=== PATIENT | female | born 1970 | race Caucasian/White ===

== ENCOUNTER 2016-11-12 05:52 | Inpatient (IN) | payer OTHER ==
[~2016-11-12] VITALS: Ht 165.1 cm; Wt 74.8 kg
[~2016-11-12 05:52] MED LIST: ASCO500T45 PO; FERR-193 PO
[2016-11-12 06:53] LABS: BASOPHILS # (AUTO) 0.1 K/uL (0.00-0.22); BASOPHILS % (AUTO) 1.1 % (0.0-2.0); EOSINOPHILS # (AUTO) 0.1 K/uL (0-0.4); EOSINOPHILS % (AUTO) 2.1 % (0.0-4.0); HEMATOCRIT 34.6 % (36-48); HEMOGLOBIN 10.9 g/dL (12.0-16.0); LYMPHOCYTES % (AUTO) 29.5 % (20.5-51.1); MEAN CORPUSCULAR HEMOGLOBIN 24 pg (27-31); MEAN CORPUSCULAR HGB CONC 31 g/dL (33-37); MEAN CORPUSCULAR VOLUME 78 fL (80-94); MONOCYTES # (AUTO) 0.6 K/uL (0.8-1.0); MONOCYTES % (AUTO) 8.7 % (1.7-9.3); NEUTROPHILS # (AUTO) 4.1 K/uL (1.8-7.7); NEUTROPHILS % (AUTO) 58.6 % (42.2-75.2); PLATELET COUNT (AUTO) 188 K/uL (140-450); RED BLOOD CELL COUNT(AUTO) 4.46 MIL/uL (4.20-5.40); RED CELL DISTRIBUTION WIDTH 16.8 % (11.6-13.7); WHITE BLOOD COUNT (AUTO) 6.9 K/uL (4.8-10.8)
[2016-11-12 07:52] LABS: ANION GAP 13.2 (8-16); CALCIUM 8.5 mg/dL (8.5-10.1); CARBON DIOXIDE 25.7 mmol/L (21-32); CREATININE 0.7 mg/dL (0.6-1.3); POTASSIUM 3.9 mmol/L (3.5-5.1)
[2016-11-12 07:59] LABS: ALBUMIN 3.8 g/dL (3.4-5.0); TOTAL BILIRUBIN 0.3 mg/dL (0.0-1.0); TOTAL PROTEIN, SERUM 7.6 g/dL (6.4-8.2)
[2016-11-12] MEDS ORDERED: BUPIVACAINE-MPF/EPI 0.5% 30 ML VIAL INJ ONE (08:22)
--- NOTE | 2016-11-12 08:30 | NUR ---
INITIAL REVIEW FA[facility]ED TO [facility] [phone] PHONE [phone]
[2016-11-12] MEDS ORDERED: fentaNYL 0.05 MG/ML VIAL ONE (11:54)
[2016-11-12] MEDS ORDERED: DESFLURANE 240 ML BTL INH ONE (12:09)
[2016-11-12] MEDS ORDERED: DEXAMETHASONE 4 MG/ML VIAL ONE (12:09)
[2016-11-12] MEDS ORDERED: ROCURONIUM 50 MG/5 ML VIAL IV ONE (12:09)
[2016-11-12] MEDS ORDERED: KETOROLAC 30 MG/ML VIAL ONE (12:09)
[2016-11-12] MEDS ORDERED: PHENYLEPHRINE 10 MG/ML VIAL ONE (12:09)
[2016-11-12] MEDS ORDERED: GLYCOPYRROLATE 0.2 MG/ML VIAL ONE (12:09)
[2016-11-12] MEDS ORDERED: PROPOFOL 200 MG/20 ML VIAL IV ONE (12:09)
[2016-11-12] MEDS ORDERED: ONDANSETRON 4 MG/2 ML VIAL IVP PRN ×2 (12:20→12:35)
[2016-11-12] MEDS ORDERED: HYDROmorphone PFS 2 MG/ML SYR ONE ×2 (12:33→13:47)
[2016-11-12] MEDS ORDERED: THROMBIN KIT 20 MU VIAL TP ONE ×2 (13:02→13:15)
[2016-11-12] MEDS: HYDROmorphone 1 MG/ML AMP IVP PRN ×4 (13:40→14:10)
[2016-11-12 14:25] VITALS: BP 121/66
--- NOTE | 2016-11-12 14:25 | NUR ---
PATIENT ARRIVED TO THE UNIT IN A GURNEY. PT S/P HYSTERECTOMY AND REMOVAL OF THE RIGHT OVARIAN CYST. NO S/S OF DISTRESS NOTED. PATIENT BREATHING ON ROOM AIR. INCISION NOTED TO THE LOWER ABDOMEN COVERED WITH CLEAN DRY AND INTACT DRESSING. SHELTON CATHETER IN PLACE. IV LINE NOTED TO THE LEFT HAND INTACT AND ASYMPTOMATIC. BED LOWERED WITH CALL LIGHT WITHIN REACH. WILL CONTINUE TO MONITOR
[2016-11-12 15:08] VITALS: BP 134/81
[2016-11-12] MEDS: MORPHINE SULFATE 4 MG/ML SYR IM/IVP PRN ×2 (15:10→21:56)
[2016-11-12 16:00] VITALS: BP 126/71
--- NOTE | 2016-11-12 16:30 | NUR ---
PATIENT ASLEEP IN BED NO S/S OF DISTRESS NOTED
--- NOTE | 2016-11-12 19:25 | NUR ---
ENDORSED CONTINUITY OF CARE TO THE NIGHT NURSE. PATIENT IN STABLE IN CONDITION
--- NOTE | 2016-11-12 19:26 | NUR ---
PATIENT IS CURRENTLY AWAKE ALERT ORIENTED RESTING IN BED,DRESSING TO LOWER ABDOMEN CURRENTLY DRY AND INTACT.PATIENT HAS A SHELTON CATHETER IN PLACE TO GRAVITY, AND PATIENT IS CURRENTLY WEARING THE SCD'S FOR DVT PROPHALAXIS. FAMILY IS CURRENTLY AT BEDSIDE WITH THE PATIENT.CALL LIGHT WITHIN REACH WILL CONTINUE TO OBSERVE.
[2016-11-12 20:00] VITALS: BP 139/89
--- NOTE | 2016-11-12 20:00 | NUR ---
Patient's Plan of Care was discussed and reviewed with MEDICAL BILLING AND CODING INSTRUCTOR: CAMILLA ROBERTS.
[2016-11-12] MEDS: ACETAMINOPHEN/CODEINE 300/30MG 1 TAB PO PRN (20:34)
--- NOTE | 2016-11-12 20:34 | NUR ---
PATIENT COMPLAINS OF MODERATE PAIN 6/10 TO LOWER ABDOMEN PATIENT MEDICATED ORDERED FOR MODERATE PAIN.PATIENT HAS NO COMPLAINS OF N/V AT THIS TIME.WILL CONTINUE TO MONITOR.
--- NOTE | 2016-11-12 21:56 | NUR ---
PATIENT COMPLAINS OF SEVERE PAIN THAT CAME SUDDENLY WHEN SHE WOKE UP 02/21 HERBERT SMITH AWARE SHE WILL MEDICATE THE PATIENT WITH MORPHINE IV ORDERED.
--- NOTE | 2016-11-12 21:57 | NUR ---
PATIENT INFORMED ME THAT SHE VOMITED A FEW MINUTES AGO APPROX 30 MINUTES AGO, EDUCATION GIVEN TO THE PATIENT TO CALL FOR ASSISTANCE AND TO CALL WHENEVER SHE HAS ANY PAIN OR FEELS NAUSEATED OR IS VOMITING WHEN IT HAPPENS. PATIENT ENCOURAGED TO VERBALIZE IF SHE HAS ANY PAIN OR DISCOMFORT, PT VERBALIZES UNDERSTANDING.HERBERT SMITH WILL MEDICATE THE PATIENT WITH ZOFRAN.
--- NOTE | 2016-11-12 22:27 | NUR ---
I MADE ROUNDS AND I CHECKED ON THE PATIENT AND SHE IS CURRENTLY ASLEEP.WILL CONTINUE TO MONITOR.
[2016-11-13] VITALS: BP 135/77
--- NOTE | 2016-11-13 00:05 | NUR ---
PATIENT WAS ASSISTED TO TURN AND REPOSITION AND WAS ASSISTED BY ERIC DAUGHERTY AND ERIC COLES.PT KEPT COMFORTABLE WILL CONTINUE TO MONITOR.
--- NOTE | 2016-11-13 03:22 | NUR ---
PATIENT STABLE SLEEPING IN BED WILL CONTINUE TO MONITOR.CALL LIGHT WITHIN REACH.
[2016-11-13] MEDS: MORPHINE SULFATE 4 MG/ML SYR IM/IVP PRN ×2 (03:35→11:14)
--- NOTE | 2016-11-13 05:23 | NUR ---
PT SLEEPING COMFORTABLY IN BED NEEDS CONTINUE TO BE MET.WILL CONTINUE TO MONITOR.
[2016-11-13 06:51] LABS: BASOPHILS % (AUTO) 0.3 % (0.0-2.0); EOSINOPHILS # (AUTO) 0.2 K/uL (0-0.4); EOSINOPHILS % (AUTO) 1.3 % (0.0-4.0); HEMATOCRIT 31.4 % (36-48); HEMOGLOBIN 10.2 g/dL (12.0-16.0); LYMPHOCYTES # (AUTO) 1.8 K/uL (2.5-16.5); LYMPHOCYTES % (AUTO) 12.9 % (20.5-51.1); MEAN CORPUSCULAR HEMOGLOBIN 24 pg (27-31); MEAN CORPUSCULAR HGB CONC 32 g/dL (33-37); MEAN CORPUSCULAR VOLUME 75 fL (80-94); MONOCYTES # (AUTO) 1.4 K/uL (0.8-1.0); NEUTROPHILS # (AUTO) 10.5 K/uL (1.8-7.7); NEUTROPHILS % (AUTO) 75.5 % (42.2-75.2); PLATELET COUNT (AUTO) 244 K/uL (140-450); RED BLOOD CELL COUNT(AUTO) 4.19 MIL/uL (4.20-5.40); RED CELL DISTRIBUTION WIDTH 16.7 % (11.6-13.7); WHITE BLOOD COUNT (AUTO) 13.9 K/uL (4.8-10.8)
--- NOTE | 2016-11-13 07:20 | NUR ---
RECEIVED PT REPORT AT BEDSIDE. PT IS A/OX4. SHE IS RESTING IN BED WITH NO SIGNS AND SYMPTOMS OF DISTRESS. PT ON RM AIR. PT COMPLAINS OF PAIN BUT IS MEDICATED WILL CONTINUE TO MONITOR FOR PAIN. IV NOTED ON THE L HAND SALINE LOCKED. INCISION NOTED ON LOWER ABD WITH CLEAN AND DRY INTACT DRESSING. SHELTON CATHETER IN PLACE WITH CLEAR YELLOW URINE. PT ON TELE MONITORING. BED LOWERED WITH CALL LIGHT WITHIN REACH. WILL CONTINUE TO MONITOR.
--- NOTE | 2016-11-13 07:32 | NUR ---
PATIENT STABLE REPORT ENDORSED TO HERBERT ROBLES.
[2016-11-13 08:00] VITALS: BP 134/72
--- NOTE | 2016-11-13 08:45 | NUR ---
PT IN BED EATING A CLEAR LIQUID DIET AND PT IS TOLERATING WELL.
--- NOTE | 2016-11-13 08:55 | NUR ---
PATIENT HAS BEEN SCREENED AND CATEGORIZED LOW NUTRITION RISK. PATIENT WILL BE SEEN WITHIN 7 DAYS OF ADMISSION. 11/18/[address]
--- NOTE | 2016-11-13 09:52 | NUR ---
SHELTON CATHETER WAS DISCONTINUED WITH 850ML URINE OUTPUT. PT TOLERATED WELL.
[2016-11-13] MEDS: ACETAMINOPHEN/CODEINE 300/30MG 1 TAB PO PRN ×3 (10:00→20:10)
--- NOTE | 2016-11-13 10:41 | NUR ---
AMBULATED PT TO RESTROOM WITH FAMILY MEMBER. PT VOIDED.
--- NOTE | 2016-11-13 10:50 | NUR ---
PT SEEN BY DR NICHOLS. DR NICHOLS MADE AWARE OF PTS WBC OF 13.9. ORDERS TO HAVE THE INCISION OPEN TO AIR.
[2016-11-13 11:10] VITALS: BP 129/69
--- NOTE | 2016-11-13 12:05 | NUR ---
REMOVED ABDOMINAL DRESSING. INCISION IS INTACT NO DRAINAGE NOTED. PATIENT TOLERATED WELL.
--- NOTE | 2016-11-13 12:30 | NUR ---
PT IS AMBULATED IN THE UNIT WITH . THERE ARE NO S/S OF DISTRESS.
--- NOTE | 2016-11-13 15:30 | NUR ---
PT AMBULATED WITH ASSISTANCE TO THE BATHROOM AND VOIDED. PATIENT IS RESTING WITH NO S/S OF DISTRESS.
[2016-11-13 16:03] VITALS: BP 126/70
--- NOTE | 2016-11-13 19:05 | NUR ---
GAVE REPORT AT BEDSIDE TO CAMILLA GODINEZ. PT IS WITH FAMILY. PT SHOWS NO S/S OF DISTRESS. PATIENT ENDORSED IN STABLE CONDITION.
--- NOTE | 2016-11-13 19:06 | NUR ---
PATIENT IS CURRENTLY AWAKE ALERT RESTING IN BED DENIES ANY PAIN OR DISCOMFORT NO COMPLAINS OF N/V NOTED AT THIS TIME.LOWER ABDOMEN INCISION WITH RELL THEY ARE CURRENTLY DRY AND INTACT.PT STATES,"I HAVE BEEN WALKING TODAY AND IM CURRENTLY TIRED."PT ENCOURAGED TO CONTINUE TO AMBULATE AND CONTINUE TO CALL FOR ASSISTANCE WHEN SHE NEEDS ASSISTANCE PT VERBALIZES UNDERSTANDING.FAMILY AT BEDSIDE CALL LIGHT WITHIN REACH WILL CONTINUE TO MONITOR.
[2016-11-13 20:00] VITALS: BP 123/74
--- NOTE | 2016-11-13 21:40 | NUR ---
PATIENT WAS ASSISTED TO THE BATHROOM WITH THE ASSISTANCE OF ERIC DAUGHERTY AND BROUGHT BACK TO BED.PATIENT TOLERATED ACTIVITY WELL. PATIENT WAS GIVEN A MESH UNDERWEAR FOR HER TO WEAR PROVIDED WITH SOME PERIPADS AND RELL TO LOWER ABDOMEN COVERED WITH A CLEAN PERIPAD SO THEY DON'T GET STUCK TO MESH UNDERWEAR. PATIENT STATES," KNOW THAT IM IN BED I WOULD LIKE TO GET SOME SLEEP." LIGHTS TURNED OFF FOR THE PATIENT AND I MADE SURE CALL LIGHT IS ALWAYS WITHIN HER REACH.
--- NOTE | 2016-11-13 23:19 | NUR ---
Patient's Plan of Care was discussed and reviewed with STRUCTURAL STEEL FITTER: CAMILLA ROBERTS
[2016-11-14 00:55] VITALS: BP 131/74
--- NOTE | 2016-11-14 00:55 | NUR ---
PATIENT IS CURRENTLY AWAKE PULLED UP IN BED CAREFULLY WITH THE HELP OF HERBERT SMITH. PATIENT WAS GIVEN FRESH WATER AND SOME JELLO AND ENCOURAGED HER TO TAKE SMALL SIPS.I ALSO ASKED THE PATIENT IF SHE IS IN PAIN SHE SAID SHE HAS MODERATE PAIN 5/10 TO LOWER ABDOMEN I OFFERED PAIN MEDICATION PT DECLINED AT FIRST. BUT I EDUCATED THE PATIENT ON THE IMPORTANCE TO RECEIVE PAIN MEDICATION TO HELP CONTROL AND RELIEVE HER PAIN. SHE VERBALIZED UNDERSTANDING AND CHANGED HER MIND ABOUT RECEIVING HER PAIN MEDS.WILL MEDICATE ORDERED.
--- NOTE | 2016-11-14 01:00 | NUR ---
ASSISTED UP TO THE BATHROOM. VOIDED. NO BLEEDING NOTED ON THE REBA PAD
[2016-11-14] MEDS: ACETAMINOPHEN/CODEINE 300/30MG 1 TAB PO PRN ×4 (01:04→20:08)
--- NOTE | 2016-11-14 03:10 | NUR ---
PATIENT SLEEPING IN BED IN NO DISTRESS WILL CONTINUE TO MONITOR.CALL LIGHT WITHIN REACH.
--- NOTE | 2016-11-14 04:02 | NUR ---
PATIENT SLEEPING COMFORTABLY IN BED WILL CONTINUE TO MONITOR.CALL LIGHT WITHIN REACH.
--- NOTE | 2016-11-14 06:05 | NUR ---
I CALLED RESPIRATORY THERAPIST GRICELDA TO REMIND HIM THAT PATIENT NEEDS INCENTIVE SPIROMETER HE SAID HE WILL COME TO GIVE THE PATIENT INCENTIVE SPIROMETER SOON HE CAN.
--- NOTE | 2016-11-14 06:44 | NUR ---
PATIENT REQUESTED FOR A BLANKET AND THEN STATES," THANK YOU FOR THE PAIN MEDICATION IT WAS VERY EFFECTIVE FOR MY PAIN."CALL LIGHT WITHIN REACH.
--- NOTE | 2016-11-14 07:10 | NUR ---
RECEIVED PT REPORT AT BEDSIDE. PT IS A/OX4. SHE IS RESTING IN BED WITH NO SIGNS AND SYMPTOMS OF DISTRESS. PT ON RM AIR. IV NOTED ON THE L HAND SALINE LOCKED.BED LOWERED WITH CALL LIGHT WITHIN REACH. WILL CONTINUE TO MONITOR
[2016-11-14 07:40] VITALS: BP 118/68
--- NOTE | 2016-11-14 07:45 | NUR ---
AMBULATED WITH PT IN THE UNIT. PT TOLERATED WELL AND VOIDED. PT IS RESTING IN BED NOW. PT SHOWS NO S/S OF DISTRESS.
--- NOTE | 2016-11-14 08:00 | NUR ---
DR NICHOLS MET WITH PT AND TALKED ABOUT BEST TIME FOR PT TO BE DISCHARGED. PT VERBALIZED TUESDAY THE BEST FOR HER TO BE DISCHARGED BC PT FAMILY WILL BE AVAILABLE TO PICK HER UP.
--- NOTE | 2016-11-14 10:40 | NUR ---
PT WAS RESTING IN BED. PT HAS NO C/O OF PAIN.
--- NOTE | 2016-11-14 12:10 | NUR ---
PT IS IN ROOM WITH . PT HAS NO S/S OF DISTRESS. PT LUNCH TRAY ARRIVED AND IS ENCOURAGED TO RESUME REGULAR DIET.
--- NOTE | 2016-11-14 12:13 | NUR ---
PT STILL HAS NO BM. GAVE PRUNE JUICE.
--- NOTE | 2016-11-14 13:00 | NUR ---
PT IS SLEEPING AND NO C/O PAIN. NO S/S OF DISTRESS.
--- NOTE | 2016-11-14 15:00 | NUR ---
PT HAS FAMILY VISITING AND IS IN THE BATHROOM. PT AMBULATED WITH ASSIST.
--- NOTE | 2016-11-14 16:00 | NUR ---
PT IS AMBULATING WITH IN THE UNIT. PT HAS NO C/O PAIN. PT IS TOLERATING WELL.
--- NOTE | 2016-11-14 17:15 | NUR ---
AMBULATE WITH ASSIST TO THE BATHROOM. PT VOIDED. PT TOLERATED AMBULATION WELL. PT HAS NO S/S OF DISTRESS. SHE IS RESTING IN BED AND HAS FAMILY VISITING.
--- NOTE | 2016-11-14 19:05 | NUR ---
GAVE REPORT AT BESIDE TO NIGHT NURSE. PT ENDORSED IN STABLE CONDITION.
--- NOTE | 2016-11-14 19:08 | NUR ---
PATIENT IS CURRENTLY AWAKE ALERT ORIENTED RESTING IN BED SMILING.LOWER ABDOMEN INCISION WITH RELL CURRENTLY DRY AND INTACT NO ACTIVE BLEEDING NOTED.RELL PROTECTED WITH A PERIPAD AND CONTINUES TO WEAR A MESH UNDERWEAR.PT DENIES PAIN AT THIS TIME.WILL CONTINUE TO MONITOR CALL LIGHT WITHIN REACH.
[2016-11-14 20:00] VITALS: BP 128/70
--- NOTE | 2016-11-14 20:08 | NUR ---
PATIENT COMPLAINS OF MODERATE PAIN TO LOWER ABDOMEN AND PATIENT WAS MEDICATED OREDERED.WILL REASSESS PAIN LEVEL.PATIENT EDUCATED AND ENCOURAGED TO CONTINUE TO AMBULATE AND ALSO TO USE THE INCENTIVE SPIROMETER.PT STATES,"I WALKED DURING THE DAY AND I WOULD LIKE TO REST FOR NOW." PT ENCOURAGED TO AMBULATE AND TOLERATED PT VERBALIZES UNDERSTANDING.REFUSES TO WEAR SCD'S AT THIS TIME.CALL LIGHT WITHIN REACH.
--- NOTE | 2016-11-14 22:20 | NUR ---
PATIENT IS CURRENTLY RESTING IN BED I TOOK PICTURES OF HER LOWER ABDOMEN INCISION SHE HAS RELL [employer] TECHNICAL ARCHITECT AND THEY ARE CURRENTLY DRY AND INTACT NO ACTIVE BLEEDING NOTED. RELL PROTECTED WITH A PERIPAD AND CONTINUES TO WEAR HER MESH UNDERWEAR.PATIENT CONTINUES TO DRINK WATER AND CONTINUES TO TOLERATE DIET WELL.CALL LIGHT WITHIN REACH WILL CONTINUE TO MONITOR.
[2016-11-15] VITALS: BP 116/65
--- NOTE | 2016-11-15 00:40 | NUR ---
PATIENT WAS ASSISTED TO THE BATHROOM AND WANTS TO SIT IN A CHAIR FOR A SHORT TIME.PATIENT DRINKING SIPS OF WATER AND WANTS TO SIT FOR A WHILE FOR NOW.PATIENT COMPLAINS OF MODERATE PAIN SHE WILL BE MEDICATED ORDERED.CALL LIGHT WITHIN REACH.
[2016-11-15] MEDS: ACETAMINOPHEN/CODEINE 300/30MG 1 TAB PO PRN ×2 (00:46→12:04)
--- NOTE | 2016-11-15 02:14 | NUR ---
PT IS CURRENTLY RESTING IN BED SLEEPING WILL CONTINUE TO MONITOR.
--- NOTE | 2016-11-15 04:01 | NUR ---
PATIENT IS CURRENTLY SLEEPING IN BED IN NO DISTRESS WILL CONTINUE TO MONITOR.CALL LIGHT WITHIN REACH.
--- NOTE | 2016-11-15 06:00 | NUR ---
PATIENT SLEEPING COMFORTABLY IN BED IN NO DISTRESS WILL CONTINUE TO MONITOR.CALL LIGHT WITHIN REACH.
--- NOTE | 2016-11-15 07:37 | NUR ---
PATIENT IS CURRENTLY RESTING IN BED SLEEPING,PATIENT ENDORSED AT BEDSIDE TO HERBERT SAVAGE HE WILL RESUME CARE.
--- NOTE | 2016-11-15 07:38 | NUR ---
PT ALERT AND ORIENTED X4, BREATHING EVENLY AND UNLABORED, NO SIGNS OF ACUTE DISTRESS. SKIN IS WARM AND DRY. PT WITH S/P RIGHT OVARIAN CYSTECTOMY AND HYSTERECTOMY. WITH LOWER ABDOMEN DRESSING AND ABDOMINAL BINDER. NO NOTED BLEEDING OR DISCHARGE ON SURGICAL SITE. NO EPISODE OF ANY NAUSEA OR VOMITING. ABLE TO PERFORM ADL'S WITH MINIMAL TO STANDBY ASSIST. NO C.O ANY PAIN AT THIS TIME. ALL NEEDS ATTENDED, SAFETY PRECAUTIONS MAINTAINED. CALL LIGHT WITHIN REACH.
[2016-11-15 08:00] VITALS: BP 110/66
--- NOTE | 2016-11-15 09:07 | NUR ---
CM NOTE CONCURRENT REVIEW SENT TO [facility] FAX# [phone] PH# [phone] JUANITA POLLCOK EXT [phone]
--- NOTE | 2016-11-15 09:48 | NUR ---
PT ABLE TO AMBULATE AND WALK 60FT WITH STANDBY ASSIST. TOLERATED WELL. CONTINUE TO MONITOR.
--- NOTE | 2016-11-15 11:40 | NUR ---
INSTRUCTED FAMILY MEMBERS ON IS USE
--- NOTE | 2016-11-15 13:00 | NUR ---
EDUCATED ON WOUND CARE AT HOME, ABDOMINAL RELL INTACT, NO REDNESS, SWELLING, OR BLEEDING NOTED. KEPT CLEAN AND DRY. FOLLOW UP WITH PCP IN 1 WEEK. PT. VERBALIZED UNDERSTANDING.
--- NOTE | 2016-11-15 13:25 | NUR ---
PT C/O CONSTIPATION, DR. Stewart NICHOLS MADE AWARE. MD VERBALIZED TO ENCOURAGE HIGH FIBER DIET AND INCREASED FLUID INTAKE UPON DISCHARGE. MADE AWARE. PT REFUSED TO BE ADMINISTERED WITH FLEET ENEMA. FOLLOW UP WITH PCP IN 1 WEEK.
--- NOTE | 2016-11-15 13:35 | NUR ---
PT ALERT AND RESPONSIVE, NO SIGNS OF ACUTE DISTRESS. MAY D/C HOME ORDERED BY Stewart HUDSON. INSTRUCTED TO FOLLOW UP WITH PCP IN 1 WEEK, CONTINUE CURRENT HOME MEDS ORDERED. PT VERBALIZED UNDERSTANDING. IV LINE AND WRIST BANDS REMOVED. PERSONAL BELONGINGS WITH PT UPON DISCHARGE. PICKED UP BY FAMILY AND WHEELED TO [employer]. TO GO HOME WITH PRIVATE AUTO.
== END 2016-11-15 13:35 | disposition home or self-care (01) | DRG 513 ==
LOC: MMU 05:52 → MTU 14:46
PROVIDERS: ADMIT Obstetrics & Gynecology; ATTEND Obstetrics & Gynecology
PROC: 0UB00ZZ Excision of Right Ovary, Open Approach (ICD-10-PCS; 2016-11-12)
PROC: 0UT90ZZ Resection of Uterus, Open Approach (ICD-10-PCS; principal; 2016-11-12 07:30)
DX: N92.1 Excessive and frequent menstruation with irregular cycle (principal); G89.29 Other chronic pain; R10.2 Pelvic and perineal pain; N83.209 Unspecified ovarian cyst, unspecified side
CPT/HCPCS: 36415; 80053; 84702; 85025; 86886; 86900; 86901; 87081; 93005; J0690; J1100; J1170; J1885; J2270; J2370; J2405; J2704; J3010; J3490; J7060; J7120

== ENCOUNTER 2022-02-17 22:13 | Emergency (ER) | payer MEDICAID, OTHER ==
[~2022-02-17] VITALS: Ht 165.1 cm; Wt 72.6 kg
[~2022-02-17 22:13] MED LIST changes: -ASCO500T45 PO; +ASCO500T95 PO; +FERR-15 PO; -FERR-193 PO
[2022-02-17 22:38] VITALS: BP 142/75
--- NOTE | 2022-02-18 02:52 | NUR ---
Dr. Tang examining patient.
[2022-02-18] MEDS ORDERED: CIPR7.5S OT (02:59)
[2022-02-18 03:07] VITALS: BP 120/78
--- NOTE | 2022-02-18 03:07 | NUR ---
Patient discharged with v/s stable. Written and verbal after care instructions given and explained for Otitis external. Patient alert, oriented and verbalized understanding of instructions. Ambulatory with steady gait. All questions addressed prior to discharge. ID band removed. Patient advised to follow up with PMD. Rx of Ciprofloxacin given. Patient educated on indication of medication including possible reaction and side effects. Opportunity to ask questions provided and answered.
== END 2022-02-18 03:07 | disposition home or self-care (01) ==
LOC: MED 22:13
DX: H60.92 Unspecified otitis externa, left ear (principal); I10 Essential (primary) hypertension; E78.5 Hyperlipidemia, unspecified
CPT/HCPCS: 99283